=== PATIENT | male | born 2000 | race Caucasian/White ===

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

== ENCOUNTER 2021-04-20 23:48 | Emergency (ER) | payer BC, SELFPAY ==
[2021-04-20 23:49] VITALS: BP 142/91; PULSE 98; RESP 18; TEMP 36.2; O2SAT 100
--- NOTE | 2021-04-21 00:10 | ED.DENTAL ---
HPI - Dental/Oral General Chief complaint: Dental/Oral Stated complaint: tooth pain Time Seen by Provider: 04/20/21 23:55 History of Present Illness HPI Narrative: Patient is a 20-year-old male who presents ER with dental pain. Located tooth #29/30. Reports he was biting on a jaw breaker 2 days ago when he fractured his teeth. Reports increased pain since then with sensitivity of water and air. Attempted to purchase some dental wax but got the wrong item. No fevers but has had some chills. He has a dentist appointment scheduled for 04/25/2021. Related Data Allergies Allergy/AdvReac Type Severity Reaction Status Date / Time Penicillins Allergy Severe Swelling Verified 07/01/19 16:37 divalproex sodium Allergy Intermediate Rash Verified 07/01/19 16:37 Review of Systems Constitutional: Constitutional: Reports chills, Denies fever(s) and Denies weakness ENT: Reports system reviewed and no additional complaints, except as documented Comments: Dental pain with tooth fracture. [facility] Past Medical History Medical History (Updated 04/21/21 @ 00:16 by Sebastián Garrison MD) Engages in nicotine containing substance vaping Hernia Surgical History Surgical History (Updated 04/21/21 @ 00:11 by Sebastián Garrison MD) H/O hernia repair Social History Social History (Updated 04/21/21 @ 00:11 by Sebastián Garrison MD) Substance use: former Substance use type: amphetamines Gender identity (if verbalized by the patient): Male Exam Narrative: GENERAL: Well-appearing, well-nourished, and in no acute distress. HEAD: Normocephalic, atraumatic. ENT: Mucous membranes moist. Multiple teeth with fractures/caries. Tender at tooth #29/30 or fractures are present. No facial swelling. No fluctuant abscess. NECK: Supple. NEURO: Alert and oriented x3. PSYCH: Normal mood and affect. Course Course Emergency Course: [place] for pain here. Discharged with pain medication and antibiotics. Keep follow-up with Dentist. Vital Signs Vital signs: Vital Signs Temperature 97.2 F L 04/20/21 23:49 Pulse Rate 98 04/20/21 23:49 Respiratory Rate 18 04/20/21 23:49 Blood Pressure 142/91 H 04/20/21 23:49 Pulse Oximetry 100 04/20/21 23:49 Temperature 97.2 F L 04/20/21 23:49 Pulse Rate 98 04/20/21 23:49 Respiratory Rate 18 04/20/21 23:49 Blood Pressure 142/91 H 04/20/21 23:49 Pulse Oximetry 100 04/20/21 23:49 Discharge Plan Discharge Clinical Impression: Toothache Patient Disposition: Home, Self-Care Condition: Stable Instructions: Antibiotic Form, Toothache (ED) Additional Instructions: Return the ER if cannot breathe, you cannot swallow, you have additional concerns. Prescriptions: New clindamycin HCl 300 mg capsule 300 mg PO Q8H Qty: 30 RF: 0 hydrocodone-acetaminophen 5-325 mg tablet 1 tablet PO Q6H PRN (Reason: pain) Qty: 14 RF: 0 No Action cyclobenzaprine 5 mg tablet 5 mg PO TID PRN (Reason: muscle pain) Qty: 20 RF: 0 Follow-up/Referrals: PHYSICIAN,COMMERCIAL FINANCE ANALYST [Primary Care Provider] - Stand Alone Forms: Work/School Release IP
[2021-04-21] MEDS: HYDROcodone/acetaminophen (*CRX) 5-325 MG TABLET 1 TAB PO (00:20)
== END 2021-04-21 00:37 | disposition home or self-care (01) ==
PROVIDERS: Emergency Provider Emergency Medicine
DX: K08.89 Other specified disorders of teeth and supporting structures (principal); F17.290 Nicotine dependence, other tobacco product, uncomplicated
CPT/HCPCS: 99283; A9270

== ENCOUNTER 2021-04-22 14:40 | Emergency (ER) | payer BC, SELFPAY ==
[2021-04-22 14:44] VITALS: BP 116/76; PULSE 93; RESP 16; TEMP 37.2; O2SAT 100
--- NOTE | 2021-04-22 15:13 | ED.DENTAL ---
HPI - Dental/Oral General Chief complaint: Dental/Oral <ESTEFANI Altman Last Filed: 04/22/21 15:19> Stated complaint: allergic to antibiotics <ESTEFANI Altman Last Filed: 04/22/21 15:19> Time Seen by Provider: 04/22/21 15:00 <ESTEFANI Altman Last Filed: 04/22/21 15:19> Source: patient <ESTEFANI Altman Last Filed: 04/22/21 15:19> Mode of arrival: ambulatory <ESTEFANI Altman Last Filed: 04/22/21 15:19> Limitations: no limitations <ESTEFANI Altman Last Filed: 04/22/21 15:19> History of Present Illness HPI Narrative: This is a 20-year-old male that presents to the emergency department for toothache. He was evaluated in the emergency department for this last night. Started on clindamycin for this. His mother thought that clindamycin was related to penicillin and that he should have this antibiotic changed. He reports he has taken 3 doses without relief. Denies fever. <ESTEFANI Altman Last Filed: 04/22/21 15:19> MD Complaint: tooth pain <ESTEFANI Altman Last Filed: 04/22/21 15:19> Location: Tooth # (28, 29) <ESTEFANI Altman Last Filed: 04/22/21 15:19> Related Data Allergies/adverse reactions: Allergies Allergy/AdvReac Type Severity Reaction Status Date / Time Penicillins Allergy Severe Swelling Verified 07/01/19 16:37 divalproex sodium Allergy Intermediate Rash Verified 07/01/19 16:37 <ESTEFANI Altman Last Filed: 04/22/21 15:19> Review of Systems Review of Systems: CONSTITUTIONAL: Denies fever ENT: Reports dentalgia <ESTEFANI Altman Last Filed: 04/22/21 15:19> All systems reviewed & are unremarkable except as noted in HPI and below <Latisha Mendez PA-C - Last Filed: 04/22/21 15:19> [facility] Past Medical History Medical History: Medical History (Updated 04/22/21 @ 15:19 by Latisha Mendez PA-C) Engages in nicotine containing substance vaping Hernia <Latisha Mendez PA-C - Last Filed: 04/22/21 15:19> Surgical History Surgical History: Surgical History (Updated 04/21/21 @ 00:11 by Sebastián Garrison MD) H/O hernia repair <Latisha Mendez PA-C - Last Filed: 04/22/21 15:19> Social History Social History: Social History (Updated 04/21/21 @ 00:11 by Sebastián Garrsion MD) Substance use: former Substance use type: amphetamines Gender identity (if verbalized by the patient): Male <Latisha Mendez PA-C - Last Filed: 04/22/21 15:19> Exam Narrative: GENERAL: Well-appearing, well-nourished, and in no acute distress. HEAD: Normocephalic, atraumatic. EYES: EOMI. ENT: Mucous membranes moist. Oropharynx without tonsillar hypertrophy exudate or other lesions. No facial swelling. No trismus. Tooth #28 and 29 are broken with mild surrounding redness. No fluctuance to suggest abscess NECK: Supple. No adenopathy or masses. CHEST: Clear to auscultation. No respiratory distress. No wheezes rales or rhonchi HEART: Regular rate and rhythm. No murmur heard. Normal peripheral pulses. EXTREMITIES: Normal range of motion. No edema. SKIN: Warm, dry, no rash. NEURO: No focal deficits. Alert and oriented x3. PSYCH: Normal mood and affect <Latisha Mendez PA-C - Last Filed: 04/22/21 15:19> Course SOCIAL SCIENCE RESEARCH ASSISTANT/PA Physician Supervision I did not see this patient nor was the care plan discussed with me. I was available for evaluation and consultation, I agree with the documentation <Qamar Silverio MD - Last Filed: 04/22/21 17:00> Vital Signs Vital signs: Vital Signs Temperature 37.2 C 04/22/21 14:44 Pulse Rate 93 04/22/21 14:44 Respiratory Rate 16 04/22/21 14:44 Blood Pressure 116/76 04/22/21 14:44 Pulse Oximetry 100 04/22/21 14:44 Temperature 37.2 C 04/22/21 14:44 Pulse Rate 93 04/22/21 14:44 Respiratory Rate 16 04/22/21 14:44 Blood Pressure 116/76 04/22/21 14:44 Pulse Oximetry 100 04/22/21 14:44 <Latisha
== END 2021-04-22 15:28 | disposition home or self-care (01) ==
PROVIDERS: Emergency Provider Emergency Medicine
DX: K08.89 Other specified disorders of teeth and supporting structures (principal); F17.290 Nicotine dependence, other tobacco product, uncomplicated
CPT/HCPCS: 99283

== ENCOUNTER 2021-06-07 16:11 | Emergency (ER) | payer BC, SELFPAY ==
[2021-06-07 16:18] VITALS: BP 108/64; PULSE 112; RESP 18; TEMP 36.9; O2SAT 100
== END 2021-06-07 17:07 | disposition left against medical advice (07) ==
DX: K08.89 Other specified disorders of teeth and supporting structures (principal)
CPT/HCPCS: 99199

== ENCOUNTER 2022-01-14 14:32 | Emergency (ER) | payer BC, SELFPAY ==
[2022-01-14 14:35] VITALS: BP 142/80; PULSE 115; RESP 18; TEMP 36.9; O2SAT 100
--- NOTE | 2022-01-14 17:40 | PC.NURSE ---
PT NOT FOUND IN WAITING ROOM X3 CALLS
== END 2022-01-14 17:51 | disposition left against medical advice (07) ==
DX: L98.9 Disorder of the skin and subcutaneous tissue, unspecified (principal)
CPT/HCPCS: 99199

== ENCOUNTER 2024-07-01 20:13 | Emergency (ER) | payer BC, SELFPAY ==
[2024-07-01 20:14] VITALS: BP 136/77; PULSE 130; RESP 20; TEMP 37.2; O2SAT 100
--- OUTSIDE RECORDS SUMMARY | 2024-07-01 20:15 | XMS_ITS | Patient Health Record ---
Author Organization Formerly [facility] Address [address] [place] [address] Care Team Providers Care Wire Charger Name Role Phone Ranjeet Mcgowan Primary Care Provider [phone] Anjali Burdick Unavailable [phone] Allergies Allergen (clinical drug ingredient) Drug/Non Drug Allergy documented on EMR Reaction Allergy Type Onset Date Status Bee stings (uncoded) Unknown Allergy Active methylphenidate Concerta Unknown Drug Allergy A ctive valproate Depakote Unknown Drug Allergy Active PENICILLIN Unknown Drug Allergy Active Reason For Referral No Information Medications Medication SIG (Take, Route, Frequency, Duration) Notes Start Date End Date Status Wellbutrin SR 150 MG 1 tablet Orally Twi ce a day for smoking cessation for 30 day(s) 07/24/2017 Active traZODone HCl 100 MG 0.5-1 tablet at bed time Orally Once a day for 30 day(s) Not-Taking Topamax 100 MG 1 tablet Orally Once a day Active SEROquel 50 MG 1 tablet Orally Once a day at bedtime for 30 day(s) 05/24/2017 Active EpiPen 0.3 MG/0.3ML (1:1000) as directed Intramuscular once daily for 1 dose 09/05/2017 Active Adderall 10 MG 1 tablet in the morn ing Orally Once a day Not-Taking Adderall XR 25 MG Orally No t-Taking traZODone HCl 50 MG 1-2 tablets at bedti me as needed Orally Once a day at bedtime for 30 day(s) 08/22/2017 Active SEROquel 100 MG 1 tablet Orally Once a day for 30 day(s) Active Social History Tobacco Use: Social History Observation Description Date Details (start date - stop date) Current Smoker NA - NA Dont use, Tobacco Use/Smoking Question Answer Notes Are you a current smoker How often do you smoke cigarettes? every day How many cigarettes a day do you smoke? 11-20 How soon after you wake up d o you smoke your first cigarette? within 5 minutes Are you interested in quitting? Not ready to luis t Additional Findings: Tobacco User Modera te cigarette smoker (10-19 cigs/day) PRAPARE Question Answer Notes Date Completed/Updated: 06/23/2024 What is your current housing situation? I do not have housing (staying with others, in a hotel, in a chcf, living outside on the street, on a beach, or in a park) Are you worried about losing your housing? Yes What is the highest level of school that you have finished? High school diploma or GED What is your current work situation? Oth erwise unemployed but not seeking work (ex. 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 Check all that apply Food Has lack of transportation k ept you from medical appointments, meetings, work or from getting things needed for daily living? Yes, it has kept me from non-medical meetings, appointments, work, or getting things needed for daily living How often do you see or talk to people that you care about and feel close to? (For example: talking to friends on the phone, visiting friends or family, going to adventist or club meetings) 1 or 2 times a week How stressed are you? Stress is when someone feels tense, nervous, anxious, or can\t sleep at night because their mind is troubled Somewhat In the past year have you sp ent more than 2 nights in a row in a senior living, fdc, prison center, or juvenile correctional facility? No Do you feel physically and e motionally safe where you currently live? No In the past year, have you b een afraid of your partner or ex-partner? No PRAPARE Score: 10 Enabling Services Provided? Yes Please specify Health Education/Sup portive Counseling,Referral for Food Services,Referral for Housing Services,Transportation to/from Health Center,Transportation to/from Referral Appoinment Section Notes: Drug History-Reports he was 12 years old started with marijuana, then alcohol at 13 years, then when he was 15 years old, he started heroin and methamphetamine. Denies any IV use. Reports he would smoke the heroin and the meth. Drug History-Reports he was 12 years old started with marijuana, then alcohol at 13 years, then when he was 15 years old, he started heroin and methamphetamine. Denies any IV use. Reports he would smoke the heroin and the meth. Past meds Zoloft, Adderall, Depakote, Trazodone, Concerta, Vyvanse (which made him emotional). Drug History-Reports he was 12 years old started with marijuana, then alcohol at 13 years, then when he was 15 years old, he started heroin and methamphetamine. Denies any IV use. Reports he would smoke the heroin and the meth. Past meds Zoloft, Adderall, Depakote, Trazodone, Concerta, Vyvanse (which made him emotional). Drug History-Reports he was 12 years old started with marijuana, then alcohol at 13 years, then when he was 15 years old, he started heroin and methamphetamine. Denies any IV use. Reports he would smoke the heroin and the meth. Past meds Zoloft, Adderall, Depakote, Trazodone, Concerta, Vyvanse (which made him emotional). Drug History-Reports he was 12 years old started with marijuana, then alcohol at 13 years, then when he was 15 years old, he started heroin and methamphetamine. Denies any IV use. Reports he would smoke the heroin and the meth. Past meds Zoloft, Adderall, Depakote, Trazodone, Concerta, Vyvanse (which made him emotional). Drug History-Reports he was 12 years old started with marijuana, then alcohol at 13 years, then when he was 15 years old, he started heroin and methamphetamine. Denies any IV use. Reports he would smoke the heroin and the meth. Past meds Zoloft, Adderall, Depakote, Trazodone, Concerta, Vyvanse (which made him emotional). Problems Problem Type SNOMED Code ICD Code Onset Dates Problem Status W/U Status Risk Notes Problem Bipolar 1 disorder (194495191) Bipolar 1 disorder (F31.9) Active confirmed Problem 44221048 Attention defici t hyperactivity disorder (ADHD), combined type (F90.2) Active confirmed Problem Nicotine dependence (76853621) Nicotine dependence (F17.200) Active confirmed Problem 182920925 Insomnia, unspecified type (G47.00) Active confirmed Encounters Encounter Location Date Provider Diagnosis [address] [id number] 06/12/2024 Ranjeet Mcgowan [address] [address] 06/12/2024 Ranjeet Mcgowan [address] [address] 06/24/2024 Ranjeet Mcgowan [address] [address] 06/24/2024 Ranjeet Mcgowan Plan Of Treatment No Information Insurance Providers Payer Name Payer Address Payer Phone Subscriber Number Group Number Insured Name Patient Relationship to Insured Coverage Start Date Coverage End Date MEDICAID [address] [place] [phone] [id number] Alfredo Rodriguez Self - patient is the insured 6 Medical (General) History Medical History History ICD Code ADHD Surgical History Surgery Date(Month/Year) tubes in ears as a kid
--- NOTE | 2024-07-01 20:42 | ED.GENADULT ---
HPI - General Adult General Chief complaint: Dental/Oral Stated complaint: dental pain Time Seen by Provider: 07/01/24 20:37 History of Present Illness HPI narrative: This is a 24-year-old male with poor dentition presenting for dental pain. Patient has been having dental pain for several days. No difficulty swallowing or breathing. No swelling or signs of infection. Related Data Allergies Allergy/AdvReac Type Severity Reaction Status Date / Time Penicillins Allergy Severe Swelling Verified 07/01/24 20:13 divalproex sodium Allergy Intermediate Rash Verified 07/01/24 20:13 [facility] Past Medical History Medical History Hernia Engages in nicotine containing substance vaping Surgical History Surgical History H/O hernia repair Social History Social History Substance use: former Substance use type: amphetamines Gender identity (if verbalized by the patient): Male Exam Narrative: APPEARANCE: No apparent distress. Head: Poor dentition with multiple teeth rotted below the gum line, no evidence of abscess EYES: EOMI, NOSE: Atraumatic NECK: Trachea midline RESPIRATORY: No increased rate of breathing CARDIOVASCULAR: RRR, ABDOMINAL: Non-distended MUSCULOSKELETAl: No obvious deformities NEURO: Alert. Moving 4/4 extremities SKIN:: Warm, dry. Normal color PSYCHIATRIC: Normal affect Course Vital Signs Vital signs: Vital Signs Temperature 98.9 F 07/01/24 20:14 Pulse Rate 130 H 07/01/24 20:14 Respiratory Rate 20 07/01/24 20:14 Blood Pressure 136/77 07/01/24 20:14 Pulse Oximetry 100 07/01/24 20:14 Oxygen Delivery Room Air 07/01/24 20:14 Temperature 98.9 F 07/01/24 20:14 Pulse Rate 130 H 07/01/24 20:14 Respiratory Rate 20 07/01/24 20:14 Blood Pressure 136/77 07/01/24 20:14 Pulse Oximetry 100 07/01/24 20:14 Oxygen Delivery Room Air 07/01/24 20:14 Medical Decision Making MDM Narrative Medical decision making narrative: -Course: 24-year-old male presenting right upper and right lower dental pain. Discussed options for pain control including dental blocks versus or limitation. Patient opted for oral medication as he did not want a needle in his mouth. Patient was given oxycodone IM Toradol Tylenol. Discharged on clindamycin. Given list of low-cost dentist. Vital Signs Vital Signs: Vital Signs Temperature 98.9 F 07/01/24 20:14 Pulse Rate 130 H 07/01/24 20:14 Respiratory Rate 20 07/01/24 20:14 Blood Pressure 136/77 07/01/24 20:14 Pulse Oximetry 100 07/01/24 20:14 Oxygen Delivery Room Air 07/01/24 20:14 Temperature 98.9 F 07/01/24 20:14 Pulse Rate 130 H 07/01/24 20:14 Respiratory Rate 20 07/01/24 20:14 Blood Pressure 136/77 07/01/24 20:14 Pulse Oximetry 100 07/01/24 20:14 Oxygen Delivery Room Air 07/01/24 20:14 Discharge Plan Discharge Clinical Impression: Toothache Patient Disposition: Home Condition: Stable Instructions: Antibiotic Form, Toothache (ED) Additional Instructions: Please use Motrin and Tylenol for pain. Take clindamycin for possible infection. Please follow-up with a list of dentists provided further management. Return if you develop signs of fever or worsening pain, swelling difficulty breathing swallowing. Patient Language: Iranian Prescriptions: New ibuprofen 800 mg tablet 800 mg PO TID PRN (Reason: pain) 7 Days Qty: 21 0RF clindamycin HCl 150 mg capsule 450 mg PO Q8H 10 Days Qty: 90 0RF acetaminophen 500 mg tablet 1,000 mg PO TID PRN (Reason: josefina) 7 Days Qty: 42 0RF No Action cyclobenzaprine 5 mg tablet 5 mg PO TID PRN (Reason: muscle pain) Qty: 20 0RF clindamycin HCl 300 mg capsule 300 mg PO Q8H Qty: 30 0RF hydrocodone-acetaminophen 5-325 mg tablet 1 tablet PO Q6H PRN (Reason: pain) Qty: 14 0RF Follow-up/Referrals: PHYSICIAN,VOCATIONAL REHABILITATION COUNSELOR [Primary Care Provider] - Stand Alone Forms: Work/School Release IP
[2024-07-01] MEDS: ACETAMINOPHEN 500 MG TABLET 1000 MG PO (20:52)
[2024-07-01] MEDS: oxyCODONE HCL (*CRX) 5 MG TAB IR PO (20:52)
[2024-07-01] MEDS: KETOROLAC 30 MG/ML VIAL (*BKC) IM (20:52)
== END 2024-07-01 21:05 | disposition home or self-care (01) ==
PROVIDERS: Emergency Provider Emergency Medicine
DX: K08.89 Other specified disorders of teeth and supporting structures (principal)
CPT/HCPCS: 96372; 99283; A9270; J1885

== ENCOUNTER 2025-01-04 18:17 | Emergency (ER) | payer BC, SELFPAY ==
[2025-01-04 18:20] VITALS: BP 147/85; PULSE 82; RESP 20; TEMP 37.3; O2SAT 99
--- NOTE | 2025-01-04 22:31 | ED_ITS ---
HPI - General Adult General Chief complaint: Dental/Oral Stated complaint: L sided dental pain Time Seen by Provider: 01/04/25 21:03 History of Present Illness HPI narrative: 24-year-old male presenting for dental pain. Patient has been having dental pain since yesterday. No difficulty swallowing or breathing. No swelling or signs of infection. Patient has poor dentition. Related Data Allergies Allergy/AdvReac Type Severity Reaction Status Date / Time Penicillins Allergy Severe Swelling Verified 01/04/25 20:30 divalproex sodium Allergy Intermediate Rash Verified 01/04/25 20:30 Review of Systems Review of Systems: All systems reviewed & are unremarkable except as noted in HPI and below PMFSH Past Medical History Medical History Hernia Engages in nicotine containing substance vaping Surgical History Surgical History H/O hernia repair Social History Social History Substance use: former Substance use type: amphetamines Gender identity (if verbalized by the patient): Male Exam Narrative: GENERAL: Well-appearing, well-nourished, and in no acute distress. HEAD: Normocephalic, atraumatic. Poor dentition with multiple teeth rotted below the gum line, no evidence of abscess EYES: PERRLA and EOMI. ENT: Nares clear, no rhinorrhea or epistaxis. Mucous membranes moist. Oropharynx without tonsillar hypertrophy exudate or other lesions. Bilateral TMs pearly chirinos non-bulging NECK: Supple. No adenopathy or masses. No carotid bruits or JVD CHEST: Clear to auscultation. No respiratory distress. No wheezes rales or rhonchi HEART: Regular rate and rhythm. No murmur heard. Normal peripheral pulses. ABDOMEN: Soft, nontender, nondistended, normal active bowel sounds. EXTREMITIES: Normal range of motion. No edema. SKIN: Warm, dry, no rash. NEURO: No focal deficits. Alert and oriented x3. PSYCH: Normal mood and affect Course Vital Signs Vital signs: Vital Signs Temperature 99.2 F 01/04/25 18:20 Pulse Rate 82 01/04/25 18:20 Respiratory Rate 20 01/04/25 18:20 Blood Pressure 147/85 H 01/04/25 18:20 Pulse Oximetry 99 01/04/25 18:20 Oxygen Delivery Room Air 01/04/25 18:20 Temperature 99.2 F 01/04/25 18:20 Pulse Rate 72 01/04/25 22:45 Respiratory Rate 16 01/04/25 22:45 Blood Pressure 127/71 01/04/25 22:45 Pulse Oximetry 100 01/04/25 22:45 Oxygen Delivery Room Air 01/04/25 18:20 Medical Decision Making MDM Narrative Medical decision making narrative: 24-year-old male presenting for dental pain. Patient has been having dental pain since yesterday. No difficulty swallowing or breathing. No swelling or signs of infection. Patient has poor dentition. Discussed previous visits where patient states the prescirbed medications have improved his symptoms. Administered oxycodone, Toradol, and Tylenol for pain control. Discharged on clindamycin. Advised close follow-up with dentist. Medical Records Medical records reviewed: Yes I reviewed the external patient's medical records. Vital Signs Vital Signs: Vital Signs Temperature 99.2 F 01/04/25 18:20 Pulse Rate 82 01/04/25 18:20 Respiratory Rate 20 01/04/25 18:20 Blood Pressure 147/85 H 01/04/25 18:20 Pulse Oximetry 99 01/04/25 18:20 Oxygen Delivery Room Air 01/04/25 18:20 Temperature 99.2 F 01/04/25 18:20 Pulse Rate 72 01/04/25 22:45 Respiratory Rate 16 01/04/25 22:45 Blood Pressure 127/71 01/04/25 22:45 Pulse Oximetry 100 01/04/25 22:45 Oxygen Delivery Room Air 01/04/25 18:20 Lab Data Lab results reviewed: Yes I reviewed the patient's lab results. Critical Care Time Critical Care Time Critical Care Time: No Discharge Plan Discharge Clinical Impression: Toothache Patient Disposition: Home Condition: Stable Instructions: Antibiotic Form, Toothache (ED) Additional Instructions: Return to the ED for worsening swelling, trouble swallowing, trouble breathing, fevers/chills, drooling or inability to handle secretions, increasing redness under the jaw or into the neck, severe pain not controlled with medication, or any other concerning symptoms. Take Tylenol and Ibuprofen as needed for pain. Follow-up with your dentist. Follow-up with PCP for any other general concerns. Patient Language: Mongolian Prescriptions: New clindamycin HCl [Cleocin HCl] 300 mg capsule 300 mg PO Q6H 7 Days Qty: 28 0RF No Action cyclobenzaprine 5 mg tablet 5 mg PO TID PRN (Reason: muscle pain) Qty: 20 0RF clindamycin HCl 300 mg capsule 300 mg PO Q8H Qty: 30 0RF hydrocodone-acetaminophen 5-325 mg tablet 1 tablet PO Q6H PRN (Reason: pain) Qty: 14 0RF ibuprofen 800 mg tablet 800 mg PO TID PRN (Reason: pain) 7 Days Qty: 21 0RF clindamycin HCl 150 mg capsule 450 mg PO Q8H 10 Days Qty: 90 0RF acetaminophen 500 mg tablet 1,000 mg PO TID PRN (Reason: josefina) 7 Days Qty: 42 0RF Follow-up/Referrals: PHYSICIAN,AIRLINE MECHANIC [Primary Care Provider, Internal Medicine] Stand Alone Forms: Work/School Release IP
[2025-01-04] MEDS: oxyCODONE HCL (*CRX) 2.5 MG TAB IR PO (22:41)
[2025-01-04] MEDS: ACETAMINOPHEN 500 MG TABLET 1000 MG PO (22:41)
[2025-01-04] MEDS: KETOROLAC 10 MG TABLET PO (22:41)
[2025-01-04 22:45] VITALS: BP 127/71; PULSE 72; RESP 16; O2SAT 100
== END 2025-01-04 22:46 | disposition home or self-care (01) ==
DX: K08.89 Other specified disorders of teeth and supporting structures (principal)
CPT/HCPCS: 99283; A9270